=== PATIENT | female | born 1955 | race Caucasian/White ===

== ENCOUNTER → 2017-01-27 | Day surgery (SDC) | payer MEDICARE, OTHER ==
[~2017-01-27] MED LIST: ACETAMINOPHEN 325 MG TABLET PO ONE; BUPIVACAINE 0.25% 75 MG/30 ML VIAL ONE; GABAPENTIN 300 MG CAPSULE PO ONE; IBUPROFEN 400 MG TABLET PO ONE; IV LR 1000 ML 1,000 ML IV PRN; LIDOCAINE 1%-EPI 1:100,000 20 ML VIAL ONE; PROPOFOL 20 ML IV ONE; ROCURONIUM BROMIDE 50 MG/5 ML ONE
== END | disposition home or self-care (01) ==
LOC: DS 10:12
PROVIDERS: ATTEND Surgery
DX: K64.8 Other hemorrhoids (principal); K64.5 Perianal venous thrombosis; E11.69 Type 2 diabetes mellitus with other specified complication; E78.00 Pure hypercholesterolemia, unspecified; G47.39 Other sleep apnea; F17.210 Nicotine dependence, cigarettes, uncomplicated; Z90.49 Acquired absence of other specified parts of digestive tract; Z79.84 Long term (current) use of oral hypoglycemic drugs; Z79.899 Other long term (current) drug therapy
CPT/HCPCS: 0249T; 46320; 82962; 88304; 88305; A6402 ×2; A6403; J0690; J1100; J1885; J2405; J2704 ×2; J2710; J3490 ×4